=== PATIENT | male | born 1940 | race African-American/Black ===

== ENCOUNTER 2021-08-19 10:24 | Emergency (ER) | payer MEDICAID ==
[~2021-08-19] VITALS: Ht 154.9 cm; Wt 80.0 kg
[~2021-08-19 10:24] MED LIST: AMLO10TA80; AP50; ATEN-42; DICL50TA9 PO; FERR-43; FOLI1TAB87; HYDR-3735; HYDR-523 PO; REN800; TOPUD PO; TRAM50TA3 PO
[2021-08-19 11:25] LABS: BASOPHILS % 0.9 % (0.0-2.0); HEMATOCRIT. 28.5 % (42.0-52.0); HEMOGLOBIN. 9.1 g/dL (14.0-18.0); LYMPHOCYTES % 10.8 % (20.0-50.0); MEAN CORPUSCULAR HEMOGLOBIN 31.1 pg (28.0-32.0); MONOCYTES % 12.3 % (2.0-8.0); PLATELET 404 x1000/uL (130-400); RED BLOOD CELL COUNT 2.91 mill/uL (4.7-6.1); RED CELL DISTRIBUTION WIDTH 15.4 % (11.6-14.6)
[2021-08-19 11:32] LABS: CHLORIDE 101 mEq/L (98-107)
[2021-08-19 14:45] VITALS: BP 180/74
[2021-08-19] MEDS ORDERED: ONDANSETRON HCL 4MG/2ML INJ IV PRN (15:45)
[2021-08-19] MEDS ORDERED: CLONIDINE 0.1MG TABLET PO PRN (15:45)
[2021-08-19] MEDS ORDERED: DIPHENHYDRAMINE 50MG/ML VIAL IV PRN (15:45)
[2021-08-19] MEDS ORDERED: ACETAMINOPHEN 325MG TABLET PO PRN (15:45)
[2021-08-19] MEDS ORDERED: IPRATROPIUM/ALBUTEROL 0.5-3(2.5)MG/3ML NEB HHN PRN (15:45)
[2021-08-20] MEDS ORDERED: AMLODIPINE 10MG TABLET PO SCH (09:00)
== END 2021-08-19 16:00 | disposition left against medical advice (07) ==
LOC: ER 13:04 → EDBEDREQ 14:45 → EDBEDREQTM 14:45 → ER 16:00 → CANBEDREQ 20:34
DX: R53.1 Weakness (principal); R51.9 Headache, unspecified; Z79.899 Other long term (current) drug therapy; Z98.890 Other specified postprocedural states
CPT/HCPCS: 36415; 70551; 71045; 72141; 80053; 84484; 85025; 93005; 99285